=== PATIENT | female | born 1940 | race Caucasian/White ===

== ENCOUNTER → 2017-02-20 10:37 | Outpatient (CLI) | payer MEDICARE | END | disposition home or self-care (01) | LOC: D.CT 10:37 | DX: I73.9 Peripheral vascular disease, unspecified (principal) ==

== ENCOUNTER 2020-11-26 12:02 | Inpatient (IN) | payer MEDICARE ==
[2020-11-26 14:40] LABS: BASOPHILS 0.2 % (0-2); EOSINOPHILS 1.4 % (0-7); HEMATOCRIT 34.7 % (36.0-48.0); HEMOGLOBIN 10.8 g/dL (12-16); IMMATURE GRANULOCYTES 0.2 % (0-5); LYMPHOCYTE ABS# 2.19 10x3/uL (1.18-3.74); MCH 25.9 pg (26.0-34.0); MCHC 31.1 g/dL (31.0-37.0); MCV 83.2 fL (80.0-100.0); MEAN PLATELET VOLUME 9.9 fL (7.4-10.4); MONOCYTES 4.8 % (2-11); NEUTROPHIL ABS# 9.16 10x3/uL (1.56-6.13); NEUTROPHILS 75.4 % (40-80); PLATELET COUNT 461 10x3/uL (130-400); RBC 4.17 10x6/uL (4.00-5.40); RDW 15.1 % (11.5-14.5); WBC 12.2 10x3/uL (4.8-10.8)
[2020-11-26 14:49] LABS: APTT 30.3 SECONDS (22.8-39.4); INR 1.07 (0.85-1.17); PROTIME 12.9 SECONDS (11.6-15.0)
[2020-11-26 15:18] LABS: ANION GAP 12.9 mmol/L (8-16); CALCIUM 9.4 mg/dL (8.5-10.1); CARBON DIOXIDE 25.9 mmol/L (21.0-32.0); CREATININE - SERUM 1.3 mg/dL (0.6-1.3); POTASSIUM - SERUM 4.8 mmol/L (3.5-5.1)
[2020-11-26 15:24] LABS: ALBUMIN 3.6 g/dL (3.4-5.0); BILIRUBIN - TOTAL 0.11 mg/dL (0.2-1.3); C-REACTIVE PROTEIN 2.9 mg/dL (0.0-0.9); PROTEIN - SERUM 7.5 g/dL (6.4-8.2)
[2020-11-26 20:25] LABS: INR 1.06 (0.85-1.17); PROTIME 12.8 SECONDS (11.6-15.0)
[2020-11-26] MEDS ORDERED: GLUCOPHAGE500 MG PO (21:26)
[2020-11-26] MEDS ORDERED: PLAVIX75 MG PO (21:26)
[2020-11-26] MEDS ORDERED: HYDROCODON-ACE1 EAC7 PO (23:33)
[2020-11-27 06:07] LABS: BASOPHILS 0.2 % (0-2); EOSINOPHILS 1.7 % (0-7); HEMATOCRIT 30.7 % (36.0-48.0); HEMOGLOBIN 9.2 g/dL (12-16); IMMATURE GRANULOCYTES 0.2 % (0-5); LYMPHOCYTE ABS# 2.35 10x3/uL (1.18-3.74); LYMPHOCYTES 25.4 % (15-50); MCH 25.2 pg (26.0-34.0); MCV 84.1 fL (80.0-100.0); MEAN PLATELET VOLUME 10.3 fL (7.4-10.4); MONOCYTES 6.2 % (2-11); NEUTROPHIL ABS# 6.12 10x3/uL (1.56-6.13); NEUTROPHILS 66.3 % (40-80); PLATELET COUNT 403 10x3/uL (130-400); RBC 3.65 10x6/uL (4.00-5.40); RDW 15.2 % (11.5-14.5); WBC 9.2 10x3/uL (4.8-10.8)
[2020-11-27 06:30] LABS: ALBUMIN 2.9 g/dL (3.4-5.0); ANION GAP 13.5 mmol/L (8-16); BILIRUBIN - TOTAL 0.14 mg/dL (0.2-1.3); CALCIUM 8.4 mg/dL (8.5-10.1); CARBON DIOXIDE 22.5 mmol/L (21.0-32.0); CREATININE - SERUM 1.2 mg/dL (0.6-1.3); PHOSPHOROUS 4.4 mg/dL (2.5-4.9); PROTEIN - SERUM 5.9 g/dL (6.4-8.2)
[2020-11-27 07:05] LABS: INR 1.19 (0.85-1.17)
[2020-11-27 07:06] LABS: APTT 96.6 SECONDS (22.8-39.4)
[2020-11-27] MEDS ORDERED: BLOOD PRESSURE PILL (08:14)
[2020-11-27] MEDS ORDERED: STOOL SOFTENER PO (08:16)
[2020-11-28 02:29] LABS: BASOPHILS 0.1 % (0-2); EOSINOPHILS 0 % (0-7); HEMATOCRIT 29.3 % (36.0-48.0); IMMATURE GRANULOCYTES 0.3 % (0-5); LYMPHOCYTE ABS# 1.26 10x3/uL (1.18-3.74); LYMPHOCYTES 10.9 % (15-50); MCH 25.9 pg (26.0-34.0); MCHC 30.7 g/dL (31.0-37.0); MCV 84.2 fL (80.0-100.0); MEAN PLATELET VOLUME 9.6 fL (7.4-10.4); MONOCYTES 5.2 % (2-11); NEUTROPHIL ABS# 9.63 10x3/uL (1.56-6.13); NEUTROPHILS 83.5 % (40-80); PLATELET COUNT 376 10x3/uL (130-400); RBC 3.48 10x6/uL (4.00-5.40); RDW 15.4 % (11.5-14.5); WBC 11.5 10x3/uL (4.8-10.8)
[2020-11-28 02:55] LABS: APTT 55.6 SECONDS (22.8-39.4); INR 1.19 (0.85-1.17)
[2020-11-28 03:02] LABS: ALBUMIN 2.5 g/dL (3.4-5.0); ANION GAP 12.2 mmol/L (8-16); BILIRUBIN - TOTAL 0.13 mg/dL (0.2-1.3); CALCIUM 8.3 mg/dL (8.5-10.1); CARBON DIOXIDE 23.3 mmol/L (21.0-32.0); MAGNESIUM - SERUM 1.7 mg/dL (1.8-2.4); POTASSIUM - SERUM 4.5 mmol/L (3.5-5.1); PROTEIN - SERUM 5.7 g/dL (6.4-8.2)
[2020-11-29 04:48] LABS: BASOPHILS 0.1 % (0-2); EOSINOPHILS 0.9 % (0-7); HEMATOCRIT 31.1 % (36.0-48.0); HEMOGLOBIN 9.2 g/dL (12-16); IMMATURE GRANULOCYTES 0.2 % (0-5); LYMPHOCYTE ABS# 2.16 10x3/uL (1.18-3.74); LYMPHOCYTES 19.6 % (15-50); MCH 25.4 pg (26.0-34.0); MCHC 29.6 g/dL (31.0-37.0); MCV 85.9 fL (80.0-100.0); MEAN PLATELET VOLUME 10.3 fL (7.4-10.4); MONOCYTES 5.7 % (2-11); NEUTROPHIL ABS# 8.08 10x3/uL (1.56-6.13); NEUTROPHILS 73.5 % (40-80); PLATELET COUNT 409 10x3/uL (130-400); RBC 3.62 10x6/uL (4.00-5.40); RDW 15.8 % (11.5-14.5)
[2020-11-29 04:58] LABS: ANION GAP 11.9 mmol/L (8-16); BILIRUBIN - TOTAL 0.13 mg/dL (0.2-1.3); CALCIUM 8.4 mg/dL (8.5-10.1); CARBON DIOXIDE 24.1 mmol/L (21.0-32.0); MAGNESIUM - SERUM 1.8 mg/dL (1.8-2.4); PROTEIN - SERUM 6.6 g/dL (6.4-8.2)
[2020-11-29 05:02] LABS: PHOSPHOROUS 2.9 mg/dL (2.5-4.9)
[2020-11-30 03:51] LABS: BASOPHILS 0.1 % (0-2); HEMATOCRIT 29.2 % (36.0-48.0); HEMOGLOBIN 8.9 g/dL (12-16); IMMATURE GRANULOCYTES 0.3 % (0-5); LYMPHOCYTE ABS# 1.76 10x3/uL (1.18-3.74); LYMPHOCYTES 16.6 % (15-50); MCH 25.9 pg (26.0-34.0); MCHC 30.5 g/dL (31.0-37.0); MCV 84.9 fL (80.0-100.0); MEAN PLATELET VOLUME 9.9 fL (7.4-10.4); MONOCYTES 6.8 % (2-11); NEUTROPHILS 75.2 % (40-80); PLATELET COUNT 372 10x3/uL (130-400); RBC 3.44 10x6/uL (4.00-5.40); RDW 15.6 % (11.5-14.5); WBC 10.6 10x3/uL (4.8-10.8)
[2020-11-30 04:13] LABS: INR 1.23 (0.85-1.17); PROTIME 14.4 SECONDS (11.6-15.0)
[2020-11-30 04:14] LABS: APTT 83.9 SECONDS (22.8-39.4)
[2020-11-30 04:46] LABS: ALBUMIN 2.6 g/dL (3.4-5.0); ANION GAP 13.4 mmol/L (8-16); BILIRUBIN - TOTAL 0.27 mg/dL (0.2-1.3); CALCIUM 8.3 mg/dL (8.5-10.1); CARBON DIOXIDE 24.8 mmol/L (21.0-32.0); MAGNESIUM - SERUM 1.7 mg/dL (1.8-2.4); POTASSIUM - SERUM 4.2 mmol/L (3.5-5.1); PROTEIN - SERUM 6.1 g/dL (6.4-8.2)
[2020-12-01 05:28] LABS: ALBUMIN 2.1 g/dL (3.4-5.0); ANION GAP 15.3 mmol/L (8-16); BILIRUBIN - TOTAL 0.21 mg/dL (0.2-1.3); CARBON DIOXIDE 20.3 mmol/L (21.0-32.0); MAGNESIUM - SERUM 1.5 mg/dL (1.8-2.4); PHOSPHOROUS 2.8 mg/dL (2.5-4.9); POTASSIUM - SERUM 3.6 mmol/L (3.5-5.1); PROTEIN - SERUM 5.1 g/dL (6.4-8.2)
[2020-12-01 07:08] LABS: BASOPHILS 0.1 % (0-2); EOSINOPHILS 1.1 % (0-7); HEMATOCRIT 24.8 % (36.0-48.0); HEMOGLOBIN 7.6 g/dL (12-16); IMMATURE GRANULOCYTES 0.2 % (0-5); LYMPHOCYTE ABS# 1.89 10x3/uL (1.18-3.74); LYMPHOCYTES 20.5 % (15-50); MCH 25.8 pg (26.0-34.0); MCHC 30.6 g/dL (31.0-37.0); MCV 84.1 fL (80.0-100.0); MEAN PLATELET VOLUME 10.6 fL (7.4-10.4); MONOCYTES 8.2 % (2-11); NEUTROPHIL ABS# 6.43 10x3/uL (1.56-6.13); NEUTROPHILS 69.9 % (40-80); PLATELET COUNT 314 10x3/uL (130-400); RBC 2.95 10x6/uL (4.00-5.40); RDW 15.5 % (11.5-14.5); WBC 9.2 10x3/uL (4.8-10.8)
[2020-12-02 06:48] LABS: BASOPHILS 0.1 % (0-2); EOSINOPHILS 2.8 % (0-7); HEMATOCRIT 24.9 % (36.0-48.0); IMMATURE GRANULOCYTES 0.2 % (0-5); LYMPHOCYTE ABS# 1.38 10x3/uL (1.18-3.74); MCH 25.5 pg (26.0-34.0); MCHC 30.1 g/dL (31.0-37.0); MCV 84.7 fL (80.0-100.0); MEAN PLATELET VOLUME 10.4 fL (7.4-10.4); MONOCYTES 7.4 % (2-11); NEUTROPHIL ABS# 5.87 10x3/uL (1.56-6.13); NEUTROPHILS 72.5 % (40-80); PLATELET COUNT 360 10x3/uL (130-400); RBC 2.94 10x6/uL (4.00-5.40); RDW 15.7 % (11.5-14.5); WBC 8.1 10x3/uL (4.8-10.8)
[2020-12-02 06:53] LABS: HEMOGLOBIN 7.5 g/dL (12-16)
[2020-12-02 07:07] LABS: ALBUMIN 2.2 g/dL (3.4-5.0); BILIRUBIN - TOTAL 0.14 mg/dL (0.2-1.3); CALCIUM 8.3 mg/dL (8.5-10.1); CARBON DIOXIDE 24.8 mmol/L (21.0-32.0); CREATININE - SERUM 0.9 mg/dL (0.6-1.3); MAGNESIUM - SERUM 1.8 mg/dL (1.8-2.4); POTASSIUM - SERUM 3.8 mmol/L (3.5-5.1); PROTEIN - SERUM 5.4 g/dL (6.4-8.2)
[2020-12-02 10:04] LABS: % SATURATION 6 % (15-55); IRON 12 ug/dl (35-150); TOTAL IRON BIND CAPACITY 190 ug/dl (260-445); UNSAT IRON BIND CAPACITY 178 ug/dl (150-375)
[2020-12-03 04:30] LABS: BILIRUBIN NEGATIVE (NEGATIVE); KETONE NEGATIVE (NEGATIVE); NITRITE NEGATIVE (NEGATIVE); UROBILINOGEN NORMAL mg/dL (< 2)
[2020-12-03 04:31] LABS: BACTERIA MODERATE HPF (NONE SEEN); SQUAMOUS EPITHELIAL 0-5 HPF (0-4); WHITE CELLS - URINE 0-5 HPF (0-4)
[2020-12-03 06:13] LABS: BASOPHILS 0.2 % (0-2); EOSINOPHILS 1.2 % (0-7); IMMATURE GRANULOCYTES 0.2 % (0-5); LYMPHOCYTE ABS# 1.21 10x3/uL (1.18-3.74); LYMPHOCYTES 12.7 % (15-50); MCHC 30.6 g/dL (31.0-37.0); MCV 84.9 fL (80.0-100.0); MEAN PLATELET VOLUME 11.2 fL (7.4-10.4); MONOCYTES 7.7 % (2-11); NEUTROPHIL ABS# 7.45 10x3/uL (1.56-6.13); PLATELET COUNT 325 10x3/uL (130-400); RDW 15.7 % (11.5-14.5); WBC 9.6 10x3/uL (4.8-10.8)
[2020-12-03 06:26] LABS: ALBUMIN 2.5 g/dL (3.4-5.0); ANION GAP 12.2 mmol/L (8-16); BILIRUBIN - TOTAL 0.4 mg/dL (0.2-1.3); CALCIUM 8.6 mg/dL (8.5-10.1); CARBON DIOXIDE 22.7 mmol/L (21.0-32.0); CREATININE - SERUM 0.8 mg/dL (0.6-1.3); POTASSIUM - SERUM 3.9 mmol/L (3.5-5.1); PROTEIN - SERUM 6.1 g/dL (6.4-8.2)
[2020-12-03 06:39] LABS: HEMATOCRIT 33.3 % (36.0-48.0); HEMOGLOBIN 10.2 g/dL (12-16); RBC 3.92 10x6/uL (4.00-5.40)
[2020-12-03 08:05] LABS: APTT 39.9 SECONDS (22.8-39.4); INR 1.62 (0.85-1.17); PROTIME 17.9 SECONDS (11.6-15.0)
[2020-12-04 06:44] LABS: ALBUMIN 2.4 g/dL (3.4-5.0); BILIRUBIN - TOTAL 0.25 mg/dL (0.2-1.3); CALCIUM 8.6 mg/dL (8.5-10.1); CREATININE - SERUM 0.8 mg/dL (0.6-1.3); PROTEIN - SERUM 5.4 g/dL (6.4-8.2)
[2020-12-04 06:45] LABS: BASOPHILS 0.1 % (0-2); EOSINOPHILS 0.6 % (0-7); HEMATOCRIT 29.1 % (36.0-48.0); HEMOGLOBIN 9.1 g/dL (12-16); IMMATURE GRANULOCYTES 0.5 % (0-5); LYMPHOCYTE ABS# 1.14 10x3/uL (1.18-3.74); LYMPHOCYTES 13.2 % (15-50); MCH 26.2 pg (26.0-34.0); MCHC 31.3 g/dL (31.0-37.0); MCV 83.9 fL (80.0-100.0); MEAN PLATELET VOLUME 10.2 fL (7.4-10.4); MONOCYTES 7.2 % (2-11); NEUTROPHIL ABS# 6.77 10x3/uL (1.56-6.13); NEUTROPHILS 78.4 % (40-80); PLATELET COUNT 422 10x3/uL (130-400); RBC 3.47 10x6/uL (4.00-5.40); RDW 15.5 % (11.5-14.5); WBC 8.6 10x3/uL (4.8-10.8)
[2020-12-04 06:49] LABS: ANION GAP 9.5 mmol/L (8-16); CARBON DIOXIDE 28.5 mmol/L (21.0-32.0)
[2020-12-04] MEDS ORDERED: ELIQUIS5 MG PO (11:48)
[2020-12-04] MEDS ORDERED: ASPIRIN81 MG PO (11:49)
[2020-12-04] MEDS ORDERED: HYDROCODON-ACE1 EAC7 PO ×2 (11:49→12:19)
[2020-12-04] MEDS ORDERED: MIRALAX17 GM PO (11:49)
[2020-12-04] MEDS ORDERED: ALBUTEROL SULF8.5 GM INH (11:52)
[2020-12-05 18:08] LABS: FUNGAL - ASP FLAVUS Negative (Neg:<1:1); FUNGAL - ASP NIGER Negative (Neg:<1:1); FUNGAL - ASPER FUMIGATUS Negative (Neg:<1:1)
== END 2020-12-04 15:08 | disposition home or self-care (01) | DRG 252 ==
LOC: D.ER 12:02 → D.MS 16:45 → D.ICU 11-27 16:49 → D.MS 12-01 14:20
PROVIDERS: Emergency Medicine; Family Medicine; Internal Medicine Pulmonary Disease; Radiology Diagnostic Radiology; ADMIT Family Medicine
PROC: 047K3ZZ Dilation of Right Femoral Artery, Percutaneous Approach (ICD-10-PCS; 2020-11-27)
PROC: 047M3ZZ Dilation of Right Popliteal Artery, Percutaneous Approach (ICD-10-PCS; principal; 2020-11-27 13:00)
PROC: 0B9J8ZX Drainage of Left Lower Lung Lobe, Via Natural or Artificial Opening Endoscopic, Diagnostic (ICD-10-PCS; 2020-11-30)
DX: E11.51 Type 2 diabetes mellitus with diabetic peripheral angiopathy without gangrene (principal); J18.9 Pneumonia, unspecified organism; Z68.1 Body mass index [BMI] 19.9 or less, adult; F17.203 Nicotine dependence unspecified, with withdrawal; I77.1 Stricture of artery; I70.301 Unspecified atherosclerosis of unspecified type of bypass graft(s) of the extremities, right leg; I70.221 Atherosclerosis of native arteries of extremities with rest pain, right leg; I48.91 Unspecified atrial fibrillation; I10 Essential (primary) hypertension; Z86.718 Personal history of other venous thrombosis and embolism; Z95.1 Presence of aortocoronary bypass graft; J44.9 Chronic obstructive pulmonary disease, unspecified; R63.4 Abnormal weight loss; D64.89 Other specified anemias; R91.8 Other nonspecific abnormal finding of lung field

== ENCOUNTER 2021-01-18 11:18 | Day surgery (SDC) | payer MEDICARE ==
[~2021-01-18] VITALS: Ht 160 cm; Wt 49.0 kg
[~2021-01-18 11:18] MED LIST: ALBUTEROL SULF8.5 GM INH; ASPIRIN81 MG PO; BLOOD PRESSURE PILL; ELIQUIS5 MG PO; GLUCOPHAGE500 MG PO; HYDROCODON-ACE1 EAC7 PO; MIRALAX17 GM PO; PLAVIX75 MG PO; STOOL SOFTENER PO
[2021-01-18 12:04] LABS: BASOPHILS 0.4 % (0-2); EOSINOPHILS 1.8 % (0-7); HEMATOCRIT 30.4 % (36.0-48.0); HEMOGLOBIN 9.2 g/dL (12-16); IMMATURE GRANULOCYTES 0.2 % (0-5); LYMPHOCYTE ABS# 1.66 10x3/uL (1.18-3.74); LYMPHOCYTES 20.2 % (15-50); MCHC 30.3 g/dL (31.0-37.0); MCV 85.9 fL (80.0-100.0); MEAN PLATELET VOLUME 9.5 fL (7.4-10.4); MONOCYTES 5.2 % (2-11); NEUTROPHIL ABS# 5.91 10x3/uL (1.56-6.13); NEUTROPHILS 72.2 % (40-80); PLATELET COUNT 538 10x3/uL (130-400); RBC 3.54 10x6/uL (4.00-5.40); WBC 8.2 10x3/uL (4.8-10.8)
[2021-01-18 12:23] LABS: CALCIUM 9.9 mg/dL (8.5-10.1); CARBON DIOXIDE 26.3 mmol/L (21.0-32.0); POTASSIUM - SERUM 4.3 mmol/L (3.5-5.1)
[2021-01-18 12:41] LABS: APTT 40.1 SECONDS (22.8-39.4); INR 1.32 (0.85-1.17); PROTIME 15.2 SECONDS (11.6-15.0)
[2021-01-18] MEDS ORDERED: AMBIEN5 MG (12:43)
[2021-01-18 12:46] VITALS: BP 173/50; Ht 160 cm; Wt 49.0 kg
--- NOTE | 2021-01-18 16:13 | NUR ---
DC INSTRUCTIONS GIVEN TO PT/FAMILY. STATE UNDERSTANDING. DC'D IV CATH FULLY INTACT. PT LEFT UNIT VIA WC AT 1612
--- NOTE | 2021-01-19 15:29 | OP ---
PATIENT NAME: LENIN DE LEÓN MEDICAL RECORD: [id number] :38 LOCATION:D.OPS ADMISSION DATE: SURGEON: DEVAUGHN JEAN BAPTISTE MD DATE OF OPERATION: 01/18/2021 SURGEON: Devaughn Jean Baptiste MD PROCEDURE: Insertion of subcutaneous infusion port via left subclavian vein. PREOPERATIVE DIAGNOSIS: Non-small cell lung cancer. POSTOPERATIVE DIAGNOSIS: Non-small cell lung cancer. ANESTHESIA: General. ESTIMATED BLOOD LOSS: Minimal. SPECIMENS: None. CONDITION: Stable. DISPOSITION: Outpatient surgery after recovery room. COMPLICATIONS: None. OPERATIVE FINDINGS: Good port placement by fluoroscopy and good blood return and flushed, heparinized saline was instilled into the port. Chest x-ray without pneumothorax and with good port position in recovery room. INDICATION: Lung cancer. This patient is not a candidate for surgical resection as she has a large tumor that crosses the fissure and is not a candidate for pneumonectomy due to age and debilitated state. DESCRIPTION OF PROCEDURE: The patient was brought to the operating suite. Chest prepped and draped. A 1% Xylocaine was instilled and the subclavian vein was cannulated. Guidewire was passed under fluoroscopic control. The catheter was measured to the appropriate length and tunneled between the insertion site and a port site was made inferiorly with a pocket for placement of the port. Catheter was cut to length, connected the port, placed within the pocket and good blood return and was noted. Catheter was sutured into place. The wound was irrigated and closed. The patient is stable to recovery room. TRANSINT:[id number] Voice Confirmation ID: [id number] DOCUMENT ID: [id number] OPERATIVE REPORT [id number] LEELALENIN RICH DEVAUGHN JEAN BAPTISTE MD at 1529 CC: JAYLENE MADRIGAL MD and SATINDER MCGINNIS MD [id number] DICTATION DATE: 01/18/21 1558 MANAGER DIALYSIS: 01/18/21 1518 [facility] 01/18/21 [facility] [address] [place] [address]
== END 2021-01-18 16:12 | disposition home or self-care (01) ==
LOC: D.OPS 11:18
PROVIDERS: Anesthesiology; ATTEND Thoracic Surgery (Cardiothoracic Vascular Surgery)
DX: C34.31 Malignant neoplasm of lower lobe, right bronchus or lung (principal); E11.9 Type 2 diabetes mellitus without complications; I25.10 Atherosclerotic heart disease of native coronary artery without angina pectoris; I82.5Z1 Chronic embolism and thrombosis of unspecified deep veins of right distal lower extremity; I82.509 Chronic embolism and thrombosis of unspecified deep veins of unspecified lower extremity; D72.829 Elevated white blood cell count, unspecified; N18.9 Chronic kidney disease, unspecified; D50.0 Iron deficiency anemia secondary to blood loss (chronic)

== ENCOUNTER 2021-02-12 10:39 | Outpatient (CLI) | payer MEDICARE ==
[~2021-02-12] VITALS: Ht 160 cm; Wt 50.9 kg
[~2021-02-12 10:39] MED LIST changes: +AMBIEN5 MG
--- NOTE | 2021-02-12 12:40 | NUR ---
VENOUS ACCESS PORT TO LEFT UPPER CHEST ACCESSED USING STERILE TECHNIQUE WITH 19 G 1 INCH GREEN NEEDLE. EXCELLENT BLOOD RETURN. NS 500 ML STARTED AT 30 ML/HR AT THIS TIME. 1303- PT PREMEDICATED WITH BENADRYL 25 MG IV AND TYLENOL 650 MG PO. FIRST UNIT OF PRBC'S STARTED AT THIS TIME. INSTRUCTED PT AND SON ON S/S OF TRANSFUSION REACTION TO REPORT. THEY BOTH VOICED UNDERSTANDING.
[2021-02-12 13:34] VITALS: BP 162/69; Ht 160 cm; Wt 50.9 kg
--- NOTE | 2021-02-12 14:10 | NUR ---
ASSISTED PT TO BATHROOM, ABLE TO VOID, THEN BACK TO BED. SR UP X2 WITH CALL LIGHT IN REACH. NO S/S OF TRANSFUSION REACTION NOTED.
--- NOTE | 2021-02-12 15:22 | NUR ---
SECOND UNIT OF PRBC'S STARTED. NO S/S OF TRANSFUSION REACTION NOTED FROM FIRST UNIT.
--- NOTE | 2021-02-12 17:13 | NUR ---
SECOND UNIT OF PRBC'S COMPLETED WITH NO S/S OF TRANSFUSION REACTION NOTED OR REPORTED. 1720- DISCHARGE INSTRUCTIONS REVIEWED WITH PT AND HER SON. COPY PROVIDED, BOTH VOICED UNDERSTANDING OF INSTRUCTIONS GIVEN.
--- NOTE | 2021-02-12 17:55 | NUR ---
VENOUS ACCESS DEVICE (PORT A CATH) FLUSHED WITH 20 ML OF NS USING PUSH PAUSE METHOD, FOLLOWED BY 300 UNITS OF HEPARIN FLUSH. PORT THEN DEACCESSED, NO ACTIVE BLEEDING NOTED. SITE COVERED WITH BANDAID. PT THEN DISCHARGED VIA W/C, ACCOMPANIED BY THIS NURSE, TO POV WITH SON DRIVING. ALL BELONGINGS WITH SON/PT.
== END 2021-02-12 17:55 | disposition home or self-care (01) ==
LOC: D.OPS 10:39
PROVIDERS: ATTEND Internal Medicine Hematology & Oncology
DX: C34.00 Malignant neoplasm of unspecified main bronchus (principal); D50.9 Iron deficiency anemia, unspecified